=== PATIENT | female | born 1970 | race Caucasian/White ===

== ENCOUNTER 2021-02-15 08:05 | Inpatient (IN) | payer MEDICAID, SELFPAY ==
[~2021-02-15] VITALS: Ht 170.2 cm; Wt 143.3 kg
[2021-02-15 08:16] VITALS: BP_SYST 135
[2021-02-15] MEDS ORDERED: METOCLOPRAMIDE HCL 10 MG/2 ML VIAL IVP ONE (08:45)
[2021-02-15] MEDS ORDERED: NACL 0.9% 1,000 ML IV ONE (08:45)
[2021-02-15] MEDS ORDERED: DIPHENHYDRAMINE INJ 50 MG/ML VIAL IVP ONE (08:45)
[2021-02-15] MEDS ORDERED: MORPHINE 2 MG/ML INJ. SYRINGE IVP ONE (08:45)
[2021-02-15 09:15] LABS: BASOPHILS % (AUTO) 0.5 % (0.0-2.0); EOSINOPHILS % (AUTO) 0.6 % (0.0-4.0); HEMOGLOBIN 14.8 g/dL (12.0-16.0); LYMPHOCYTES # (AUTO) 1.2 K/uL (1.0-5.5); LYMPHOCYTES % (AUTO) 14.7 % (20.5-51.5); MEAN CORPUSCULAR HEMOGLOBIN 29 pg (27-31); MEAN CORPUSCULAR HGB CONC 34 % (32-36); MEAN CORPUSCULAR VOLUME 85 fL (79.0-98.0); MONOCYTES # (AUTO) 0.5 K/uL (0.0-1.0); MONOCYTES % (AUTO) 5.7 % (1.7-9.3); NEUTROPHILS # (AUTO) 6.5 K/uL (1.8-7.7); NEUTROPHILS % (AUTO) 78.5 % (40.0-70.0); PLATELET COUNT (AUTO) 321 K/uL (130-430); RED BLOOD CELL COUNT(AUTO) 5.17 MIL/uL (4.2-6.2); RED CELL DISTRIBUTION WIDTH 15.4 % (9.0-15.0); WHITE BLOOD COUNT (AUTO) 8.2 K/uL (4.8-10.8)
[2021-02-15 09:36] LABS: ANION GAP 16 (5-15); CHLORIDE 96 mmol/L (98-107); CREATININE 1.99 mg/dL (0.55-1.30); GLUCOSE 127 mg/dL (70-99); POTASSIUM 3.9 mmol/L (3.5-5.1); SODIUM SERUM 133 mmol/L (136-145); UREA NITROGEN, BLOOD 53 mg/dL (8-21)
[2021-02-15 09:41] LABS: GFR AFRICAN AMERICAN 34 mL/min (>90)
[2021-02-15 09:45] LABS: ALANINE AMINOTRANSFERASE 53 U/L (12-78); ALBUMIN 4.4 g/dL (3.4-4.8); ASPARTATE AMINOTRANSFERASE 37 U/L (10-37); LIPASE 428 U/L (73-393); TOTAL BILIRUBIN 0.7 mg/dL (0.0-1.0)
[2021-02-15] MEDS ORDERED: METF-518 PO (10:09)
[2021-02-15] MEDS ORDERED: TRI48 PO (10:09)
[2021-02-15] MEDS ORDERED: SIMV10TA2 PO (10:09)
[2021-02-15] MEDS ORDERED: LISI2.5T48 PO (10:09)
[2021-02-15 11:14] LABS: BILIRUBIN,URINE 1+ (NEGATIVE); CLARITY/URINE SL CLOUDY (CLEAR); COLOR,URINE YELLOW (YELLOW); GLUCOSE,URINE NEGATIVE (NEGATIVE); KETONES,URINE NEGATIVE (NEGATIVE); LEUKOCYTE ESTERASE ,URINE NEGATIVE (NEGATIVE); NITRITE, URINE NEGATIVE (NEGATIVE); PROTEIN URINE NEGATIVE (NEGATIVE); UROBILINOGEN,URINE 0.2 (0.2-1.0)
[2021-02-15 11:15] LABS: BLOOD, URINE TRACE (NEGATIVE)
[2021-02-15 11:20] LABS: BACTERIA,URINE None Seen /HPF (None Seen); CALCIUM OXALATE CRYSTALS,UR None Seen /HPF (None Seen); CALCIUM PHOSPHATE CRYSTALS,UR None Seen /HPF (None Seen); TRICHOMONAS,URINE None Seen /HPF (None Seen); YEAST,URINE None Seen /HPF (None Seen)
[2021-02-15] MEDS ORDERED: NACL 0.9% 1,000 ML IV SCH (12:15)
[2021-02-15] MEDS ORDERED: ONDANSETRON HCL 4 MG/2 ML VIAL IVP PRN (13:15)
[2021-02-15] MEDS ORDERED: INSULIN LISPRO SLIDING SCALE 100 UNITS/ML VIAL (humaLOG) SUBCUT PRN (13:15)
[2021-02-15] MEDS ORDERED: DEXTROSE 50% JECT 50 ML DISP.SYRIN IVP PRN (13:15)
[2021-02-15] MEDS ORDERED: LORazepam 2 MG/ML VIAL IVP PRN (13:15)
[2021-02-15] MEDS ORDERED: MAGNESIUM SULFATE 50 ML IV PRN (13:15)
[2021-02-15] MEDS ORDERED: MUPIROCIN 2% TOPICAL OINTMENT 22 GM NS PRN (13:15)
[2021-02-15] MEDS ORDERED: ACETAMINOPHEN 325 MG TABLET PO PRN (13:15)
[2021-02-15] MEDS ORDERED: ZOLPIDEM TARTRATE 5 MG TABLET PO PRN (13:15)
[2021-02-15] MEDS ORDERED: DOCUSATE SODIUM 100 MG CAPSULE PO PRN (13:15)
[2021-02-15] MEDS ORDERED: POTASSIUM CHLORIDE 20 MEQ TAB.PRT.SR PO PRN (13:15)
[2021-02-15 13:40] LABS: CHOLESTEROL 137 mg/dL (<200); HDL CHOLESTEROL 28 mg/dL (>55); LDL CHOLESTEROL 88 mg/dL (<100); TRIGLYCERIDES 172 mg/dL (30-150)
[2021-02-15 14:41] VITALS: BP_SYST 136
[2021-02-15] MEDS: D5NS 1,000 ML IV SCH ×2 (14:47→22:04)
[2021-02-15] MEDS ORDERED: METOCLOPRAMIDE HCL 10 MG/2 ML VIAL IVP PRN (15:00)
[2021-02-15] MEDS ORDERED: PANTOPRAZOLE SODIUM 40 MG/VIAL (PROTONIX) IVP ONE (15:00)
[2021-02-15] MEDS: MORPHINE 2 MG/ML INJ. SYRINGE IVP PRN ×2 (15:18→21:59)
[2021-02-15 20:00] VITALS: BP_SYST 110
[2021-02-15] MEDS: LOSARTAN POTASSIUM 25 MG TABLET PO SCH (22:02)
[2021-02-16 01:00] VITALS: BP_SYST 109
[2021-02-16] MEDS: D5NS 1,000 ML IV SCH ×4 (02:35→21:53)
[2021-02-16 09:29] LABS: CALCIUM 9.2 mg/dL (8.4-11.0); CREATININE 1.37 mg/dL (0.55-1.30); POTASSIUM 3.7 mmol/L (3.5-5.1)
[2021-02-16] MEDS ORDERED: DIATR MEGLU/DIATRIZ SOD 30 ML SOLUTION PO ONE (09:49)
[2021-02-16] MEDS: LEVOFLOXACIN 250 MG/D5W 50 ML IV SCH (11:27)
[2021-02-16] MEDS ORDERED: PANTOPRAZOLE SODIUM 40 MG/VIAL (PROTONIX) IVP ONE (11:30)
[2021-02-16 12:00] VITALS: BP_SYST 122
[2021-02-16 12:33] LABS: BASOPHILS % (AUTO) 0.4 % (0.0-2.0); EOSINOPHILS # (AUTO) 0.1 K/uL (0.0-0.4); HEMATOCRIT 40.9 % (36-48); HEMOGLOBIN 13.4 g/dL (12.0-16.0); LYMPHOCYTES # (AUTO) 1.4 K/uL (1.0-5.5); LYMPHOCYTES % (AUTO) 24.8 % (20.5-51.5); MEAN CORPUSCULAR HEMOGLOBIN 29 pg (27-31); MEAN CORPUSCULAR HGB CONC 33 % (32-36); MONOCYTES # (AUTO) 0.4 K/uL (0.0-1.0); MONOCYTES % (AUTO) 7.9 % (1.7-9.3); NEUTROPHILS # (AUTO) 3.8 K/uL (1.8-7.7); NEUTROPHILS % (AUTO) 65.9 % (40.0-70.0); PLATELET COUNT (AUTO) 314 K/uL (130-430); RED BLOOD CELL COUNT(AUTO) 4.69 MIL/uL (4.2-6.2); RED CELL DISTRIBUTION WIDTH 15.9 % (9.0-15.0); WHITE BLOOD COUNT (AUTO) 5.7 K/uL (4.8-10.8)
[2021-02-16] MEDS: LOSARTAN POTASSIUM 25 MG TABLET PO SCH ×2 (12:39→21:00)
[2021-02-16] MEDS: metroNIDAZOLE 250 MG TABLET PO SCH ×2 (12:39→18:00)
[2021-02-16 12:52] LABS: MEAN CORPUSCULAR VOLUME 87 fL (79.0-98.0)
[2021-02-16 13:47] LABS: HCG,QUAL RESULT NEGATIVE (NEGATIVE)
[2021-02-16 14:05] LABS: BILIRUBIN,URINE NEGATIVE (NEGATIVE); BLOOD, URINE NEGATIVE (NEGATIVE); CLARITY/URINE CLEAR (CLEAR); COLOR,URINE YELLOW (YELLOW); GLUCOSE,URINE NEGATIVE (NEGATIVE); KETONES,URINE NEGATIVE (NEGATIVE); LEUKOCYTE ESTERASE ,URINE NEGATIVE (NEGATIVE); NITRITE, URINE NEGATIVE (NEGATIVE); PH,URINE 5.5 (5.0-8.0); PROTEIN URINE NEGATIVE (NEGATIVE); UROBILINOGEN,URINE 0.2 (0.2-1.0)
[2021-02-16] MEDS: MORPHINE 2 MG/ML INJ. SYRINGE IVP PRN (14:22)
[2021-02-16 14:51] VITALS: BP_SYST 131
[2021-02-16 16:00] VITALS: BP_SYST 155
[2021-02-16 20:00] VITALS: BP_SYST 117
[2021-02-17] MEDS: metroNIDAZOLE 250 MG TABLET PO SCH ×2 (01:20→11:11)
[2021-02-17 05:00] VITALS: BP_SYST 114
[2021-02-17] MEDS: D5NS 1,000 ML IV SCH (06:02)
[2021-02-17 07:13] LABS: BASOPHILS % (AUTO) 0.4 % (0.0-2.0); EOSINOPHILS # (AUTO) 0.1 K/uL (0.0-0.4); EOSINOPHILS % (AUTO) 1.3 % (0.0-4.0); HEMATOCRIT 37.2 % (36-48); HEMOGLOBIN 12.1 g/dL (12.0-16.0); LYMPHOCYTES # (AUTO) 1.6 K/uL (1.0-5.5); LYMPHOCYTES % (AUTO) 30.4 % (20.5-51.5); MEAN CORPUSCULAR HEMOGLOBIN 28 pg (27-31); MEAN CORPUSCULAR HGB CONC 33 % (32-36); MEAN CORPUSCULAR VOLUME 86 fL (79.0-98.0); MONOCYTES # (AUTO) 0.4 K/uL (0.0-1.0); MONOCYTES % (AUTO) 7.9 % (1.7-9.3); NEUTROPHILS # (AUTO) 3.3 K/uL (1.8-7.7); PLATELET COUNT (AUTO) 261 K/uL (130-430); RED BLOOD CELL COUNT(AUTO) 4.33 MIL/uL (4.2-6.2); RED CELL DISTRIBUTION WIDTH 15.8 % (9.0-15.0); WHITE BLOOD COUNT (AUTO) 5.4 K/uL (4.8-10.8)
[2021-02-17 07:54] LABS: INR 1.1 (0.8-1.2); PROTHROMBIN TIME 11.2 SECS (9.5-12.5)
[2021-02-17 08:00] VITALS: BP_SYST 131
[2021-02-17 08:22] LABS: ALBUMIN 3.2 g/dL (3.4-4.8); CREATININE 0.98 mg/dL (0.55-1.30); POTASSIUM 3.8 mmol/L (3.5-5.1); TOTAL BILIRUBIN 0.6 mg/dL (0.0-1.0)
[2021-02-17] MEDS ORDERED: PANTOPRAZOLE SODIUM 40 MG/VIAL (PROTONIX) IVP SCH (09:00)
[2021-02-17] MEDS: LOSARTAN POTASSIUM 25 MG TABLET PO SCH (09:04)
[2021-02-17] MEDS: LEVOFLOXACIN 250 MG/D5W 50 ML IV SCH (11:11)
[2021-02-17 12:00] VITALS: BP_SYST 116
[2021-02-17 14:32] VITALS: BP_SYST 116
== END 2021-02-17 17:30 | disposition home or self-care (01) | DRG 249 ==
LOC: SED 08:05 → SMU 12:15
PROVIDERS: ADMIT General Practice; ATTEND General Practice
DX: A08.4 Viral intestinal infection, unspecified (principal); N17.0 Acute kidney failure with tubular necrosis; R65.11 Systemic inflammatory response syndrome (SIRS) of non-infectious origin with acute organ dysfunction; E66.9 Obesity, unspecified; E78.5 Hyperlipidemia, unspecified; I10 Essential (primary) hypertension; Z20.822 Contact with and (suspected) exposure to COVID-19; E86.0 Dehydration; E87.2 Acidosis; Z68.42 Body mass index [BMI] 45.0-49.9, adult; Z87.440 Personal history of urinary (tract) infections; Z79.899 Other long term (current) drug therapy; Z79.84 Long term (current) use of oral hypoglycemic drugs; Z88.8 Allergy status to other drugs, medicaments and biological substances
CPT/HCPCS: 36415; 76376; 76770; 80048; 80053; 80061; 81000; 81003; 82962; 83036; 83690; 83735; 84484; 84703; 85025; 85610-TC; 85730-TC; 87045-TC; 87046; 87177; 87230-TC; 89055; 93005; 96361; 96374; 96375; 99285; C9113; J1200; J1956; J2060; J2270; J2765; Q9964

== ENCOUNTER 2021-02-20 07:07 | Emergency (ER) | payer MEDICAID, SELFPAY ==
[~2021-02-20] VITALS: Ht 170.2 cm; Wt 140.6 kg
[2021-02-20 07:07] VITALS: BP_SYST 140
[~2021-02-20 07:07] MED LIST: LISI2.5T48 PO; METF-518 PO; SIMV10TA2 PO; TRI48 PO
--- NOTE | 2021-02-20 07:07 | NUR ---
BROUGHT BACK TO TRIAGE TENT, TRIAGED AND AWAITING ER BED
--- NOTE | 2021-02-20 07:20 | NUR ---
BROUGHT IN TO BED #4 AND REPORT GIVEN MARTHA
[2021-02-20] MEDS ORDERED: NS 500 ML IV ONE (07:45)
--- NOTE | 2021-02-20 07:56 | NUR ---
BIB SELF FOR LOOSE STOOL. NO OTHER COMPLAINTS
[2021-02-20 08:11] LABS: BASOPHILS % (AUTO) 0.7 % (0.0-2.0); EOSINOPHILS # (AUTO) 0.1 K/uL (0.0-0.4); EOSINOPHILS % (AUTO) 1.7 % (0.0-4.0); HEMATOCRIT 40.5 % (36-48); HEMOGLOBIN 13.3 g/dL (12.0-16.0); LYMPHOCYTES # (AUTO) 1.7 K/uL (1.0-5.5); LYMPHOCYTES % (AUTO) 28.9 % (20.5-51.5); MEAN CORPUSCULAR HEMOGLOBIN 28 pg (27-31); MEAN CORPUSCULAR HGB CONC 33 % (32-36); MEAN CORPUSCULAR VOLUME 86 fL (79.0-98.0); MONOCYTES # (AUTO) 0.4 K/uL (0.0-1.0); MONOCYTES % (AUTO) 6.2 % (1.7-9.3); NEUTROPHILS # (AUTO) 3.8 K/uL (1.8-7.7); NEUTROPHILS % (AUTO) 62.5 % (40.0-70.0); PLATELET COUNT (AUTO) 254 K/uL (130-430); RED BLOOD CELL COUNT(AUTO) 4.72 MIL/uL (4.2-6.2); RED CELL DISTRIBUTION WIDTH 15.8 % (9.0-15.0)
[2021-02-20 08:17] LABS: CALCIUM 9.2 mg/dL (8.4-11.0); CREATININE 0.97 mg/dL (0.55-1.30); POTASSIUM 3.7 mmol/L (3.5-5.1)
--- NOTE | 2021-02-20 08:20 | NUR ---
PT C/O HEADACHE MD AWARE
[2021-02-20 08:25] LABS: BILIRUBIN,URINE 2+ (NEGATIVE); BLOOD, URINE 1+ (NEGATIVE); CLARITY/URINE SL CLOUDY (CLEAR); COLOR,URINE YELLOW (YELLOW); GLUCOSE,URINE NEGATIVE (NEGATIVE); KETONES,URINE TRACE (NEGATIVE); LEUKOCYTE ESTERASE ,URINE NEGATIVE (NEGATIVE); NITRITE, URINE POSITIVE (NEGATIVE); PROTEIN URINE 2+ (NEGATIVE); UROBILINOGEN,URINE 0.2 (0.2-1.0)
[2021-02-20 08:31] LABS: ALBUMIN 3.6 g/dL (3.4-4.8); PHOSPHORUS 4.2 mg/dL (2.7-4.5); THYROID STIMULATING HORMONE 1.71 uIu/mL (0.36-3.74); TOTAL BILIRUBIN 0.5 mg/dL (0.0-1.0)
--- NOTE | 2021-02-20 08:49 | NUR ---
MD HERNANDEZ AGAIN PT C/O HEADACHE NO ORDERS RCEIVED
[2021-02-20] MEDS ORDERED: LOM2.5 PO (09:22)
[2021-02-20] MEDS ORDERED: PROCHLORPERAZINE EDISYLATE 10 MG/2 ML VIAL IVP ONE (09:30)
[2021-02-20 09:45] VITALS: BP_SYST 140
--- NOTE | 2021-02-20 09:47 | NUR ---
Patient given written and verbal discharge instructions and verbalizes understanding. EDEL NOLAN MD discussed with patient the results and treatment provided. Patient in stable condition. ID arm band removed. IV catheter removed intact and dressing applied, no active bleeding. Rx of LOMOTIL given. Patient educated on pain management and to follow up with PMD. Pain Scale 2 HEADACHE. Opportunity for questions provided and answered. Medication side effect fact sheet provided.
[2021-02-20] MEDS ORDERED: NITR-85 PO (09:51)
[2021-02-20 10:16] LABS: BACTERIA,URINE MODERATE /HPF (None Seen)
== END 2021-02-20 09:47 | disposition home or self-care (01) ==
LOC: SED 07:07
DX: N39.0 Urinary tract infection, site not specified (principal); R19.7 Diarrhea, unspecified; Z88.5 Allergy status to narcotic agent; Z88.8 Allergy status to other drugs, medicaments and biological substances; Z88.6 Allergy status to analgesic agent; Z79.899 Other long term (current) drug therapy; Z79.84 Long term (current) use of oral hypoglycemic drugs
CPT/HCPCS: 36415; 80053; 81000; 83735; 84100; 84443; 85025; 96361; 96374; 99283; J0780; J7030

== ENCOUNTER 2021-02-22 05:40 | Inpatient (IN) | payer MEDICAID, SELFPAY ==
[~2021-02-22] VITALS: Ht 170.2 cm; Wt 140.6 kg
[~2021-02-22 05:40] MED LIST changes: +LOM2.5 PO; +NITR-85 PO
[2021-02-22 06:08] VITALS: BP_SYST 128
--- NOTE | 2021-02-22 06:08 | NUR ---
Patient ambulatory to bed 8 for evaluation
[2021-02-22] MEDS ORDERED: ONDANSETRON HCL 4 MG/2 ML VIAL IM ONE (06:30)
--- NOTE | 2021-02-22 06:30 | NUR ---
ER Dr. Epps at bedside examining patient.
--- NOTE | 2021-02-22 06:55 | NUR ---
Received patient to ER w/ c/o n/v and diarrhea. Patient was seen x2 days ago for similar c/o but sx have not resolved. Introduced self to patient, positioned for comfort. Patient refused zofran 2nd "it upsets my stomach". MD will be notified. Patient resting quietly. No acute distress noted. Vital signs within normal range.
[2021-02-22] MEDS ORDERED: METOCLOPRAMIDE HCL 10 MG/2 ML VIAL ONE (07:02)
--- NOTE | 2021-02-22 07:10 | NUR ---
# gauge angiocath placed to right hand. Use of asceptic technique. Opsite placed over site. Blood return noted. Flushed with 10 cc of normal saline. No evidence of infiltration noted. Patient tolerated well.
--- NOTE | 2021-02-22 07:10 | NUR ---
Medicated w/ reglan 10mg per MD orders. will continue to monitor for any adverse reaction. bed to low position sr up, continue to monitor.
--- NOTE | 2021-02-22 07:13 | NUR ---
RECEIVED PT, LAYING ON GURNEY, IN NAD. RESP EVEN AND UNLABORED, IN NAD. DENIES ANY PAIN AT THIS TIME. PT OBESE, ABD SOFT, NT TO PALPATION. MEDICATED WITH REGLAN WITH PRIOR SHIFT. REPORTS WAS ADMITTED HERE LAST WEEK FOR SAME ISSUE, DIAGNOSED WITH VOMITTING, NO OTHER DIAGNOSIS PER PT. WILL CONT TO MONITOR.
[2021-02-22] MEDS ORDERED: METOCLOPRAMIDE HCL 10 MG/2 ML VIAL IVP ONE (07:30)
[2021-02-22 07:55] LABS: BASOPHILS % (AUTO) 0.5 % (0.0-2.0); EOSINOPHILS % (AUTO) 0.5 % (0.0-4.0); HEMATOCRIT 45.3 % (36-48); LYMPHOCYTES # (AUTO) 1.4 K/uL (1.0-5.5); LYMPHOCYTES % (AUTO) 15.9 % (20.5-51.5); MEAN CORPUSCULAR HEMOGLOBIN 28 pg (27-31); MEAN CORPUSCULAR HGB CONC 33 % (32-36); MEAN CORPUSCULAR VOLUME 85 fL (79.0-98.0); MONOCYTES # (AUTO) 0.5 K/uL (0.0-1.0); MONOCYTES % (AUTO) 5.9 % (1.7-9.3); NEUTROPHILS % (AUTO) 77.2 % (40.0-70.0); PLATELET COUNT (AUTO) 377 K/uL (130-430); RED BLOOD CELL COUNT(AUTO) 5.32 MIL/uL (4.2-6.2); RED CELL DISTRIBUTION WIDTH 15.7 % (9.0-15.0)
[2021-02-22 08:05] LABS: ANION GAP 17 (5-15); CALCIUM 9.2 mg/dL (8.4-11.0); CHLORIDE 97 mmol/L (98-107); CREATININE 2.02 mg/dL (0.55-1.30); GLUCOSE 127 mg/dL (70-99); POTASSIUM 3.6 mmol/L (3.5-5.1); SODIUM SERUM 133 mmol/L (136-145); UREA NITROGEN, BLOOD 27 mg/dL (8-21)
[2021-02-22 08:10] LABS: ALANINE AMINOTRANSFERASE 52 U/L (12-78); ALBUMIN 4.2 g/dL (3.4-4.8); AMYLASE 129 U/L (0-100); ASPARTATE AMINOTRANSFERASE 28 U/L (10-37); C-REACTIVE PROTEIN QUANT 4.2 mg/dL (0-0.5); LIPASE 356 U/L (73-393); TOTAL BILIRUBIN 0.3 mg/dL (0.0-1.0)
[2021-02-22 08:13] LABS: GFR AFRICAN AMERICAN 34 mL/min (>90)
[2021-02-22 08:27] LABS: INR 1.1 (0.8-1.2); PROTHROMBIN TIME 11.3 SECS (9.5-12.5)
--- NOTE | 2021-02-22 08:37 | NUR ---
URINE COLLECTED AND SENT TO LAB
[2021-02-22] MEDS ORDERED: NACL 0.9% 1,000 ML IV ONE (09:15)
[2021-02-22] MEDS ORDERED: DIATR MEGLU/DIATRIZ SOD 30 ML SOLUTION PO ONE (09:28)
[2021-02-22 09:35] LABS: ACETONE, SERUM NEGATIVE (NEGATIVE)
[2021-02-22 09:42] LABS: BARBITURATE, URINE NEGATIVE (NEG <=200); BENZODIAZEPINE, URINE POSITIVE (NEG <=150); CANNABINOID, URINE NEGATIVE (NEG <=50); COCAINE, URINE NEGATIVE (NEG <=150); METHAMPHETAMINES SCREEN,URINE NEGATIVE (NEG <=500); OPIATE, URINE NEGATIVE (NEG <=100); PHENCYCLIDINE SCREEN,URINE NEGATIVE (NEG <=25); UR TRICYCLIC ANTIDEPRESSANTS NEGATIVE (NEG <=300); URINE AMPHETAMINE NEGATIVE (NEG <=500); URINE METHADONE NEGATIVE (NEG <=200); URINE OXYCODONE SCREEN NEGATIVE (NEG <=100); URINE PROPOXYPHENE SCREEN NEGATIVE (NEG <=300)
--- NOTE | 2021-02-22 10:07 | NUR ---
NO ACUTE CHANGE IN CONDITION. PT WITH EYES CLOSED, IN NAD. RESP EVEN AND UNLABORED, ON RA @98%
--- NOTE | 2021-02-22 10:27 | NUR ---
ADMITTING ORDERS RECEIVED, PT VERBALIZED UNDERSTANDING.
--- NOTE | 2021-02-22 11:24 | NUR ---
PT CONTINUES TO REPORT INTERMITTENT NAUSEA AND DIARRHEA. VSS, SKIN W/D/I.
--- NOTE | 2021-02-22 11:28 | NUR ---
PT TO CT SCAN VIA W/C.
[2021-02-22 11:34] LABS: BILIRUBIN,URINE 2+ (NEGATIVE); CLARITY/URINE SL CLOUDY (CLEAR); COLOR,URINE YELLOW (YELLOW); GLUCOSE,URINE NEGATIVE (NEGATIVE); KETONES,URINE TRACE (NEGATIVE); LEUKOCYTE ESTERASE ,URINE TRACE (NEGATIVE); NITRITE, URINE NEGATIVE (NEGATIVE); PROTEIN URINE 2+ (NEGATIVE); UROBILINOGEN,URINE 0.2 (0.2-1.0)
[2021-02-22 11:39] LABS: BLOOD, URINE TRACE (NEGATIVE)
[2021-02-22] MEDS: cefTRIAXone 1 GM in D5W 50 ML IV SCH (12:00)
[2021-02-22] MEDS ORDERED: PANTOPRAZOLE SODIUM 40 MG/VIAL (PROTONIX) IVP ONE (12:00)
[2021-02-22] MEDS ORDERED: ONDANSETRON HCL 4 MG/2 ML VIAL IVP PRN (12:00)
[2021-02-22] MEDS ORDERED: MAG-AL HYDROX/SIMETH 30 ML UDC PO PRN (12:00)
[2021-02-22] MEDS: NACL 0.9% 1,000 ML IV SCH ×3 (12:00→21:45)
--- NOTE | 2021-02-22 12:03 | NUR ---
PT CONVERSING WITH FAMILY, IN NAD. RESPEVEN AND UNLABOERED, WAITING FOR M/S BED. VSS.
[2021-02-22] MEDS ORDERED: INSULIN REGULAR, HUMAN 100 UNITS/ML, 10 ML VIAL (humuLIN R) SUBCUT PRN (12:15)
[2021-02-22] MEDS ORDERED: DEXTROSE 50% JECT 50 ML DISP.SYRIN IVP PRN (12:15)
[2021-02-22 12:52] LABS: BACTERIA,URINE MODERATE /HPF (None Seen)
--- NOTE | 2021-02-22 13:06 | NUR ---
PT WITH EYES CLOSED, EASILY [place]. CONTINUES TO REPORT CONT NAUSEA/DIARRHEA. NO VIMTTING SEEN, WILL CONT TOMONITOR.
[2021-02-22] MEDS ORDERED: cefTRIAXone 1 GM VIAL ONE (13:56)
--- NOTE | 2021-02-22 14:03 | NUR ---
PT REPORTS GOING TO [facility] AND HAVING SOME DIARRHEA, IV FLUIDS INFUSING WITH ROCEPHIN ORDERED.
--- NOTE | 2021-02-22 14:38 | NUR ---
Patient will be admitted to care of DR JAIMES. Admitted to unit. Will go to room . Belongings list completed. Complete and up to date summary report printed. SBAR report to be given at bedside with opportunity for questions.
[2021-02-22 15:44] VITALS: BP_SYST 113
[2021-02-22 16:00] VITALS: BP_SYST 113
[2021-02-22] MEDS: MAG-AL HYDROX/SIMETH 30 ML UDC PO SCH ×2 (16:08→19:42)
--- NOTE | 2021-02-22 16:28 | NUR ---
ATTENDING MD DR JAIMES WAS CALLED RE: MEDS FOR DIARRHEA AND HEADACHE. PT PREFERS MORPHINE FOR HUGGINS. SPOKE TO ANGGE.
--- NOTE | 2021-02-22 16:58 | NUR ---
alert, oriented, multiple complaints on arrival: 1/ vomitting without stop ( vomitus bag given, stayed there with her almost 1hr for interview, no vomitting took place) 2/ diarrhea wihout stop ( a specimen cup given for stool collection, culture and sensitivity). No meds ordered until result back 3/ morphine " must be morphine, NO TYLENOL, did not work for my headache, ) explained morphine will make her nauseated more, still insists MSO4 ivp. attending made aware of patient's allergy, NORCO, ultram 50 mg qid prn if needed 4/ heart burn secondary to intractable vomitting, Maalox 30cc given, took only 1/2 of it. Clear liquid given, did not want to eat, asked for ice chips , instead. IVF initiated, NS at 150cc /hr
--- NOTE | 2021-02-22 17:56 | NUR ---
no vomitting noted, stool collected for C &S bs 166, declined insulin coverage, " i havent eaten anything, plus blood sugar 166, not orin enough, declined coverage made aware she can have Ultram if in pain, rejected.
[2021-02-22 19:25] VITALS: BP_SYST 101
--- NOTE | 2021-02-22 19:30 | NUR ---
initial notes: pt is awake, alert, oriented x 4. no complain of pain,no sob,no vomiting. stable vital sign, ivf infusing well, ambulatory with steady gait. discuss plan of care. pt agree, needs attended call light in reach. will followup.
[2021-02-22] MEDS: PANTOPRAZOLE SODIUM 40 MG/VIAL (PROTONIX) IVP SCH (21:32)
[2021-02-23 00:04] VITALS: BP_SYST 93
--- NOTE | 2021-02-23 01:17 | NUR ---
sleeping comfortable. no vomiting, stable. ivf infusing well.
--- NOTE | 2021-02-23 03:17 | NUR ---
BRP, pt ambulate with steady gait, back to bed, needs attended.
[2021-02-23] MEDS: NACL 0.9% 1,000 ML IV SCH ×3 (06:17→22:30)
--- NOTE | 2021-02-23 06:48 | NUR ---
closing: pt is sleeping, comfortable. no pain, not distress, no vomiting and no diarrhea the whole shift, stable. ivf infusing well. -intact and patent. ambulatory to bathroom with steady gait. needs attended the whole shift. call light with the pt,safety precaution in place. will continue to monitor pt, until sbar reporting given to am rn.
[2021-02-23 07:01] LABS: BASOPHILS % (AUTO) 0.5 % (0.0-2.0); EOSINOPHILS % (AUTO) 0.6 % (0.0-4.0); HEMATOCRIT 40.5 % (36-48); HEMOGLOBIN 13.3 g/dL (12.0-16.0); LYMPHOCYTES # (AUTO) 1.8 K/uL (1.0-5.5); LYMPHOCYTES % (AUTO) 24.3 % (20.5-51.5); MEAN CORPUSCULAR HEMOGLOBIN 28 pg (27-31); MEAN CORPUSCULAR HGB CONC 33 % (32-36); MEAN CORPUSCULAR VOLUME 86 fL (79.0-98.0); MONOCYTES # (AUTO) 0.7 K/uL (0.0-1.0); MONOCYTES % (AUTO) 8.9 % (1.7-9.3); NEUTROPHILS # (AUTO) 4.9 K/uL (1.8-7.7); NEUTROPHILS % (AUTO) 65.7 % (40.0-70.0); PLATELET COUNT (AUTO) 296 K/uL (130-430); RED BLOOD CELL COUNT(AUTO) 4.72 MIL/uL (4.2-6.2); RED CELL DISTRIBUTION WIDTH 15.5 % (9.0-15.0); WHITE BLOOD COUNT (AUTO) 7.4 K/uL (4.8-10.8)
--- NOTE | 2021-02-23 08:00 | NUR ---
AM NOTES NO VOMITING. NO DIARRHEA NOTED TODAY. AMBULATE TO THE BATHROOM
[2021-02-23 08:40] LABS: ALBUMIN 3.5 g/dL (3.4-4.8); CALCIUM 8.9 mg/dL (8.4-11.0); CREATININE 2.14 mg/dL (0.55-1.30); POTASSIUM 3.2 mmol/L (3.5-5.1); TOTAL BILIRUBIN 0.6 mg/dL (0.0-1.0)
[2021-02-23 08:41] VITALS: BP_SYST 115
[2021-02-23] MEDS: PANTOPRAZOLE SODIUM 40 MG/VIAL (PROTONIX) IVP SCH ×2 (09:05→22:25)
[2021-02-23] MEDS: MAG-AL HYDROX/SIMETH 30 ML UDC PO SCH ×4 (09:06→22:25)
[2021-02-23] MEDS: FENOFIBRATE NANOCRYSTALLIZED 48 MG TABLET (TRICOR) PO SCH (09:06)
[2021-02-23] MEDS: SIMVASTATIN 10 MG TABLET PO SCH (09:06)
[2021-02-23 09:15] VITALS: BP_SYST 105
[2021-02-23 12:08] VITALS: BP_SYST 114
[2021-02-23] MEDS: cefTRIAXone 1 GM in D5W 50 ML IV SCH (12:13)
--- NOTE | 2021-02-23 13:50 | NUR ---
HIGH ALERT NOTE: Called Dr. JAIMES back at [phone] identified within the medical roster to verify physician authenticity.
[2021-02-23] MEDS ORDERED: POTASSIUM CHLORIDE 20 MEQ/PKT PACKET PO ONE (14:00)
--- NOTE | 2021-02-23 14:57 | NUR ---
CONSULTATION PAGED/CALLED Reason for Consultation: [] abnormal gastric wall Person Who was Notified: [] YOLIS Consulting Physician: [] DR DUTTON Order Editor Specialty: [] GI Ordering Physician: [] DR JAIMES
--- NOTE | 2021-02-23 15:00 | NUR ---
SEEN BY MD SEEN BY DR JAIMES, TO BE SEEN BY DR GONZALEZ (NEPHRO)AND DR SINGH (GI)
[2021-02-23 16:14] VITALS: BP_SYST 107
--- NOTE | 2021-02-23 16:24 | NUR ---
CONSULTATION PAGED/CALLED Reason for Consultation: [] RENAL FAILURE Person Who was Notified: [] DR GONZALEZ Consulting Physician: [] DR GONZALEZ Php Software Engineer Specialty: [] NEPHRO Ordering Physician: [] DR JAIMES
[2021-02-23] MEDS ORDERED: METOCLOPRAMIDE HCL 10 MG/2 ML VIAL IVP PRN (17:00)
--- NOTE | 2021-02-23 19:47 | NUR ---
FULL LIQUID NOT TOLERATED PATIENT UNABLE TO TOLERATED FULL LIQUID, HAD DIARRHEA, WANTS TO BE BACK ON CLEAR LIQUID.
[2021-02-23 20:00] VITALS: BP_SYST 112
[2021-02-24] VITALS: BP_SYST 108
[2021-02-24] MEDS: NACL 0.9% 1,000 ML IV SCH ×3 (05:04→18:04)
[2021-02-24 06:46] LABS: BASOPHILS % (AUTO) 0.7 % (0.0-2.0); EOSINOPHILS # (AUTO) 0.1 K/uL (0.0-0.4); EOSINOPHILS % (AUTO) 1.1 % (0.0-4.0); HEMATOCRIT 34.5 % (36-48); HEMOGLOBIN 11.3 g/dL (12.0-16.0); LYMPHOCYTES # (AUTO) 1.7 K/uL (1.0-5.5); LYMPHOCYTES % (AUTO) 33.1 % (20.5-51.5); MEAN CORPUSCULAR HEMOGLOBIN 28 pg (27-31); MEAN CORPUSCULAR HGB CONC 33 % (32-36); MEAN CORPUSCULAR VOLUME 86 fL (79.0-98.0); MONOCYTES # (AUTO) 0.4 K/uL (0.0-1.0); MONOCYTES % (AUTO) 8.5 % (1.7-9.3); NEUTROPHILS # (AUTO) 2.9 K/uL (1.8-7.7); NEUTROPHILS % (AUTO) 56.6 % (40.0-70.0); PLATELET COUNT (AUTO) 228 K/uL (130-430); RED BLOOD CELL COUNT(AUTO) 4.01 MIL/uL (4.2-6.2); RED CELL DISTRIBUTION WIDTH 15.3 % (9.0-15.0); WHITE BLOOD COUNT (AUTO) 5.1 K/uL (4.8-10.8)
[2021-02-24 07:31] LABS: CALCIUM 8.5 mg/dL (8.4-11.0); CREATININE 1.24 mg/dL (0.55-1.30); POTASSIUM 3.7 mmol/L (3.5-5.1)
[2021-02-24 08:41] VITALS: BP_SYST 115
--- NOTE | 2021-02-24 08:41 | NUR ---
INITIAL ROUNDS Received pt AAOx4, no s/s resp distress, no c/o pain or discomfort. Pt stated post clear liquid breakfast she had a bowel movement-more solid, still a little loose. She wants to try a full liquid lunch. Plan of care for the day reviewed with pt-pt verbalized her understanding. IVF infusing well to right hand at ordered rate with no s/s infiltration to site. Pain management, skin and safety discussed-teach back done. Call light within reach.
[2021-02-24] MEDS: MAG-AL HYDROX/SIMETH 30 ML UDC PO SCH ×4 (09:00→21:17)
[2021-02-24] MEDS: SIMVASTATIN 10 MG TABLET PO SCH (09:40)
[2021-02-24] MEDS: FENOFIBRATE NANOCRYSTALLIZED 48 MG TABLET (TRICOR) PO SCH (09:40)
[2021-02-24] MEDS: PANTOPRAZOLE SODIUM 40 MG/VIAL (PROTONIX) IVP SCH ×2 (09:41→21:17)
[2021-02-24 11:24] VITALS: BP_SYST 123
[2021-02-24] MEDS: cefTRIAXone 1 GM in D5W 50 ML IV SCH (13:27)
[2021-02-24 15:22] VITALS: BP_SYST 104
[2021-02-24] MEDS: traMADol HCL HCL 50 MG TABLET (ULTRAM) PO PRN ×2 (15:31→21:18)
--- NOTE | 2021-02-24 16:15 | NUR ---
Dietitian Recommendations * [facility] * Advance diet if/when medically appropriate ([facility] diet) * RD provided diabetic/GERD MNT JANEE, EMILY Please refer to Nutrition Assessment for details. Addendum: 02/24/21 at [address] Amended: Links added.
--- NOTE | 2021-02-24 18:19 | NUR ---
CLOSING NOTE Pt sitting up in bed with no s/s resp distress, no c/o pain or discomfort. Pt had soft CCHO diet for dinner, tolerated well, no c/o diarrhea or nausea. IVF infusing well to right hand at ordered rate with no s/s infiltration to site. Needs met, call light within reach.
--- NOTE | 2021-02-24 19:15 | NUR ---
CHANGE OF SHIFT; endorsed by day shift. for intractable vomiting. no vomiting all day. no distress. call light within reach.
[2021-02-24 20:00] VITALS: BP_SYST 107
--- NOTE | 2021-02-24 20:00 | NUR ---
NOTES: pt. awake, alert when checked, c/o headache, was given pain med earlier but said did not help. IVF continuous @ 15o cc/hr.
--- NOTE | 2021-02-24 22:20 | NUR ---
NOTES: pt/ c/o headache, medicated with Ultram po and due meds given. BS checked 102, no sliding scale. IV continuous @ 150 cc/hr.
[2021-02-25] MEDS: NACL 0.9% 1,000 ML IV SCH ×3 (01:00→13:11)
--- NOTE | 2021-02-25 01:22 | NUR ---
NOTES: pt. sleeping and awakened with IV alarm. IV bag changed.
--- NOTE | 2021-02-25 04:00 | NUR ---
NOTES: pt. been interrupted sleeping with IV pump alarming every now and then. pt. able to go back to sleep after.
[2021-02-25 06:10] LABS: BASOPHILS % (AUTO) 0.5 % (0.0-2.0); EOSINOPHILS # (AUTO) 0.1 K/uL (0.0-0.4); EOSINOPHILS % (AUTO) 1.8 % (0.0-4.0); HEMATOCRIT 33.4 % (36-48); HEMOGLOBIN 10.8 g/dL (12.0-16.0); LYMPHOCYTES # (AUTO) 2.1 K/uL (1.0-5.5); LYMPHOCYTES % (AUTO) 40.9 % (20.5-51.5); MEAN CORPUSCULAR HEMOGLOBIN 28 pg (27-31); MEAN CORPUSCULAR HGB CONC 32 % (32-36); MEAN CORPUSCULAR VOLUME 87 fL (79.0-98.0); MONOCYTES # (AUTO) 0.5 K/uL (0.0-1.0); MONOCYTES % (AUTO) 8.8 % (1.7-9.3); NEUTROPHILS # (AUTO) 2.5 K/uL (1.8-7.7); PLATELET COUNT (AUTO) 216 K/uL (130-430); RED BLOOD CELL COUNT(AUTO) 3.86 MIL/uL (4.2-6.2); RED CELL DISTRIBUTION WIDTH 15.4 % (9.0-15.0); WHITE BLOOD COUNT (AUTO) 5.2 K/uL (4.8-10.8)
[2021-02-25 06:12] LABS: ALBUMIN 2.7 g/dL (3.4-4.8); CALCIUM 8.3 mg/dL (8.4-11.0); CREATININE 1.05 mg/dL (0.55-1.30); TOTAL BILIRUBIN 0.3 mg/dL (0.0-1.0)
--- NOTE | 2021-02-25 06:41 | NUR ---
CLOSING NOTES; pt. been dozing on and off, verbalized she did not get enough sleep. IVF continuous @ 150 cc/hr. no vomiting. denies any pain at this time. BS checked 84, offered juice but she will wait for breakfast. call light wiClearside Biomedicalin reach. will endorse to incoming shift.
--- NOTE | 2021-02-25 08:05 | NUR ---
OPENING NOTES: Patient eating breakfast. No s/s of acute distress noted. IV infusing well. Fall and safety measures reinforced. Call light within reach.
[2021-02-25 08:30] VITALS: BP_SYST 123
[2021-02-25] MEDS: PANTOPRAZOLE SODIUM 40 MG/VIAL (PROTONIX) IVP SCH (08:59)
[2021-02-25] MEDS: MAG-AL HYDROX/SIMETH 30 ML UDC PO SCH ×2 (09:00→13:11)
[2021-02-25] MEDS: FENOFIBRATE NANOCRYSTALLIZED 48 MG TABLET (TRICOR) PO SCH (09:01)
[2021-02-25] MEDS: SIMVASTATIN 10 MG TABLET PO SCH (09:02)
[2021-02-25 11:31] VITALS: BP_SYST 119
[2021-02-25] MEDS: cefTRIAXone 1 GM in D5W 50 ML IV SCH (11:39)
--- NOTE | 2021-02-25 11:42 | NUR ---
RN NOTES/ACCUCHECK: ACCUCHECK DONE (86). PATIENT GIVEN JUICE. NO S/S NOTED. DENIES ANY DISCOMFORT AT THIS TIME.
[2021-02-25] MEDS ORDERED: LACT1TAB14 PO (15:08)
[2021-02-25] MEDS ORDERED: CIPR500T5 PO ×2 (15:08)
[2021-02-25 15:27] VITALS: BP_SYST 122
--- NOTE | 2021-02-25 15:33 | NUR ---
Dr. Zambrano rounds Dr. Zambrano discussed patient's results with her at her bedside. He reviewed her labs and CTAP and Renal US results with her. He recommends that the patient follow a diet and exercise regimen with calorie and carbohydrate counting. The patient verbalized understanding. The patient was instructed to follow up with her primary care provider for follow up Renal US in 6 months and that she can stop taking Metformin for now as long as her blood glucose levels remain WNL and that she follows and diet and exercise regimen- she needs to follow up with her primary care provider for follow up labs, the patient verbalized understanding. CTAP, Renal US and Lab results provided to the patient by Dr. Zambrano. Informed primary nurse, Lidia HAYS.
[2021-02-25 16:34] VITALS: BP_SYST 122
--- NOTE | 2021-02-25 17:40 | NUR ---
D/C Patient Patient given medication reconciliation form and D/C instructions. Exit Care provided. Patient verbalized understanding. MD discussed with patient the results and treatment provided. Ambulatory with steady gait for discharge to home. Patient in stable condition, ID band removed. IV catheter removed, intact and dressing applied, no active bleeding. E script given. All belongings sent with patient.
== END 2021-02-25 17:40 | disposition home or self-care (01) | DRG 249 ==
LOC: SED 05:40 → SMU 10:29
PROVIDERS: ADMIT Internal Medicine; ATTEND Internal Medicine
DX: K52.9 Noninfective gastroenteritis and colitis, unspecified (principal); N17.0 Acute kidney failure with tubular necrosis; E11.21 Type 2 diabetes mellitus with diabetic nephropathy; E83.41 Hypermagnesemia; K76.0 Fatty (change of) liver, not elsewhere classified; K31.9 Disease of stomach and duodenum, unspecified; E86.0 Dehydration; N39.0 Urinary tract infection, site not specified; E66.01 Morbid (severe) obesity due to excess calories; E78.5 Hyperlipidemia, unspecified; E87.1 Hypo-osmolality and hyponatremia; E87.6 Hypokalemia; I10 Essential (primary) hypertension; Z20.822 Contact with and (suspected) exposure to COVID-19; Z68.42 Body mass index [BMI] 45.0-49.9, adult; Z88.6 Allergy status to analgesic agent; Z88.5 Allergy status to narcotic agent; Z88.8 Allergy status to other drugs, medicaments and biological substances; Z79.899 Other long term (current) drug therapy; Z79.84 Long term (current) use of oral hypoglycemic drugs; Z83.3 Family history of diabetes mellitus
CPT/HCPCS: 36415; 76376; 76770; 80048; 80053; 80061; 80307; 81000; 82009; 82043; 82150; 82570; 82962; 83036; 83605; 83690; 83735; 84100; 84302; 84703; 85025; 85610-TC; 85730-TC; 86140; 87045-TC; 87046; 87081; 87086; 96360; 99285; C9113; J0696; J2405; J2765; J7060; Q9964

== ENCOUNTER 2021-02-28 15:48 | Inpatient (IN) | payer MEDICAID, SELFPAY ==
[~2021-02-28] VITALS: Ht 170.2 cm; Wt 138.3 kg
--- NOTE | 2021-02-28 00:44 | NUR ---
ADMISSION: The patient, JOVANI HAYES, 50 y/o, F admitted by SIRISHA MARTINS DO, was given written information regarding hospital policies, unit procedures and contact persons. Valuables were checked and DOCUMENTED. Addendum: 03/01/21 at 0654 by Preet Hayes RN NOTE INTENDED FOR DIFFERENT TIME
[~2021-02-28 15:48] MED LIST changes: +CIPR500T5 PO; +LACT1TAB14 PO; -LISI2.5T48 PO; -METF-518 PO; -NITR-85 PO; -SIMV10TA2 PO; -TRI48 PO
[2021-02-28 16:00] VITALS: BP_SYST 136
[2021-02-28 17:14] LABS: BASOPHILS % (AUTO) 0.4 % (0.0-2.0); EOSINOPHILS # (AUTO) 0.1 K/uL (0.0-0.4); EOSINOPHILS % (AUTO) 0.5 % (0.0-4.0); HEMATOCRIT 45.8 % (36-48); HEMOGLOBIN 15.1 g/dL (12.0-16.0); LYMPHOCYTES # (AUTO) 1.9 K/uL (1.0-5.5); MEAN CORPUSCULAR HEMOGLOBIN 28 pg (27-31); MEAN CORPUSCULAR HGB CONC 33 % (32-36); MEAN CORPUSCULAR VOLUME 86 fL (79.0-98.0); MONOCYTES # (AUTO) 0.6 K/uL (0.0-1.0); MONOCYTES % (AUTO) 6.4 % (1.7-9.3); NEUTROPHILS # (AUTO) 7.1 K/uL (1.8-7.7); NEUTROPHILS % (AUTO) 72.7 % (40.0-70.0); PLATELET COUNT (AUTO) 357 K/uL (130-430); RED BLOOD CELL COUNT(AUTO) 5.34 MIL/uL (4.2-6.2); WHITE BLOOD COUNT (AUTO) 9.7 K/uL (4.8-10.8)
[2021-02-28 17:58] LABS: CREATININE 1.43 mg/dL (0.55-1.30); POTASSIUM 3.4 mmol/L (3.5-5.1)
[2021-02-28 18:00] LABS: PROTHROMBIN TIME 11.1 SECS (9.5-12.5)
[2021-02-28 18:13] LABS: ALBUMIN 4.5 g/dL (3.4-4.8); TOTAL BILIRUBIN 0.4 mg/dL (0.0-1.0)
--- NOTE | 2021-02-28 19:52 | NUR ---
Patient to ER bed 03 to gown for evaluation. Side rails up. Report given to SAÚL Dejesus
--- NOTE | 2021-02-28 20:16 | NUR ---
PT BIB FAMILY WITH C/O N/V/D AND BURNING ABD PAIN 12/13. SYMPTOMS BEGAN LAST NIGHT, PT UNBLE TO TOLERATE ANYTHING BY MOUTH. ABD TENDER TO TOUCH. PT WAS ADMITTED HERE LAST WEEK FOR SAME ISSUES. PT WAS DX WITH DIVERTICULITIS LAST ADMISSION WELL DEHYDRATION. ALLERGIES - NORCO, ANCEF
[2021-02-28] MEDS ORDERED: NACL 0.9% 1,000 ML IV ONE ×2 (20:45→21:45)
[2021-02-28] MEDS ORDERED: ONDANSETRON HCL 4 MG/2 ML VIAL IVP ONE ×2 (20:45→22:45)
--- NOTE | 2021-02-28 20:52 | NUR ---
DR. TAPIA AT BEDSIDE FOR EVALUATION.
[2021-02-28] MEDS ORDERED: PANTOPRAZOLE SODIUM 40 MG/VIAL (PROTONIX) IVP ONE (21:00)
[2021-02-28] MEDS ORDERED: MAG HYDROX/AL HYDROX/SIMETH 30 ML, DICYCLOMINE HCL 20 MG, LIDOCAINE VISCOUS 2% 15ML (PO... PO ONE ×3 (21:00)
--- NOTE | 2021-02-28 21:54 | NUR ---
PT SATES SHE IS STILL UNABLE TO URINATE OR GIVE A UA AT HIS TIME. IV FLUIDS STILL INFUSING. SHE WANTS TO WAIT UNTIL FLUIDS CONTINUE INFUSING BEFORE TRYING. PT RESTING QUIETLY AT TIS TIME, STILL C/O OF ABD PAIN 11/12. DR TAPIA AWARE
[2021-02-28] MEDS ORDERED: MORPHINE 4 MG INJ. 4 MG/ML VIAL IVP ONE (22:15)
[2021-02-28] MEDS ORDERED: PROCHLORPERAZINE EDISYLATE 10 MG/2 ML VIAL IVP ONE (22:45)
--- NOTE | 2021-02-28 22:53 | NUR ---
covid swab performed at bedside and sent to lab
[2021-02-28 23:14] LABS: CALCIUM 10.1 mg/dL (8.4-11.0); POTASSIUM 3.8 mmol/L (3.5-5.1)
[2021-02-28] MEDS ORDERED: INSULIN REGULAR, HUMAN 100 UNITS/ML, 10 ML VIAL (humuLIN R) SUBCUT PRN (23:15)
[2021-02-28] MEDS: MORPHINE 2 MG/ML INJ. SYRINGE IVP PRN (23:55)
--- NOTE | 2021-02-28 23:56 | NUR ---
PT STILL NOT ABLE TO PROVIDE STOOL OR UA. HAS RECEIVED 2 L OF NS ALREADY. PT TO BE ADMITTED. STILL HAVING PAIN AFTER LAST DOSE OF MED. WILL MEDICATE WITH PAIN MED PER ADMITTING ORDER.
--- NOTE | 2021-03-01 00:21 | NUR ---
STOMACH AND PAIN BETTER CONTROLLED. WAITING TO TRANSFER TO MED/SURG
[2021-03-01 00:44] VITALS: BP_SYST 126
--- NOTE | 2021-03-01 00:44 | NUR ---
ADMISSION: The patient, JOVANI HAYES, 50 y/o, F admitted by SIRISHA MARTINS DO, was given written information regarding hospital policies, unit procedures and contact persons. Valuables were checked and DOCUMENTED.
--- NOTE | 2021-03-01 00:46 | NUR ---
Patient will be admitted to care of DR MARTINS. Admitted to MED/SURG unit. Will go to room 116B. Belongings list completed. Complete and up to date summary report printed. SBAR report to be given at bedside with opportunity for questions.
--- NOTE | 2021-03-01 01:30 | NUR ---
INITIAL NOTE AT INITIAL ASSESSMENT, PATIENT IS RESTING IN BED, STABLE, NO SIGNS OF RESPIRATORY DISTRESS. PATIENT VERBALIZES NO PAIN. PLAN OF CARE FOR THE EVENING IS COMMUNICATED WITH THE PATIENT. PATIENT DEMONSTRATES CORRECT USAGE OF CALL LIGHT AT THIS TIME. BED IS LOCKED, ALARMED, AND AT THE LOWEST LEVEL. FALL SAFETY EDUCATION PROVIDED. FALL, SAFETY, AND RESPIRATORY PRECAUTIONS WILL BE TAKEN THROUGHOUT THE SHIFT.
[2021-03-01] MEDS: NACL 0.9% 1,000 ML IV SCH ×3 (02:41→11:06)
[2021-03-01 06:31] LABS: BASOPHILS % (AUTO) 0.3 % (0.0-2.0); EOSINOPHILS % (AUTO) 0.4 % (0.0-4.0); LYMPHOCYTES # (AUTO) 1.9 K/uL (1.0-5.5); LYMPHOCYTES % (AUTO) 26.9 % (20.5-51.5); MEAN CORPUSCULAR HEMOGLOBIN 28 pg (27-31); MEAN CORPUSCULAR HGB CONC 33 % (32-36); MEAN CORPUSCULAR VOLUME 86 fL (79.0-98.0); MONOCYTES # (AUTO) 0.5 K/uL (0.0-1.0); MONOCYTES % (AUTO) 7.2 % (1.7-9.3); NEUTROPHILS # (AUTO) 4.6 K/uL (1.8-7.7); NEUTROPHILS % (AUTO) 65.2 % (40.0-70.0); PLATELET COUNT (AUTO) 259 K/uL (130-430); RED BLOOD CELL COUNT(AUTO) 4.63 MIL/uL (4.2-6.2); RED CELL DISTRIBUTION WIDTH 15.6 % (9.0-15.0)
--- NOTE | 2021-03-01 06:54 | NUR ---
CLOSING NOTE PATIENT STATED PRN MEDICATION GIVEN TO HER FOR HER PAIN WAS EFFECTIVE. PATIENT SLEPT WELL THROUGHOUT THE SHIFT, NO SHORTNESS OF BREATH NOTED. AT THIS TIME, PATIENT IS RESTING IN BED, STABLE, NO SIGNS OF RESPIRATORY DISTRESS. CALL LIGHT IS WITHIN REACH. BED IS LOCKED, ALARMED, AND AT THE LOWEST LEVEL. FALL, SAFETY, AND RESPIRATORY PRECAUTIONS HAVE BEEN TAKEN THROUGHOUT THE SHIFT. WILL CONTINUE TO MONITOR UNTIL SHIFT REPORT IS GIVEN AT BEDSIDE TO AM NURSE.
--- NOTE | 2021-03-01 07:54 | NUR ---
OPENING NOTES: PATIENT RESTING IN BED. BREATHING EVEN AND NON LABORED TO RA. BED LOCKED, ALARM ON AND IN LOWEST POSITION. FALL, SAFETY AND ASPIRATION MEASURES REINFORCED. CALL LIGHT WITHIN REACH.
[2021-03-01 08:16] VITALS: BP_SYST 110
[2021-03-01 10:17] LABS: ALBUMIN 3.5 g/dL (3.4-4.8); CALCIUM 9.2 mg/dL (8.4-11.0); CREATININE 1.84 mg/dL (0.55-1.30); POTASSIUM 3.6 mmol/L (3.5-5.1); TOTAL BILIRUBIN 0.3 mg/dL (0.0-1.0)
[2021-03-01] MEDS ORDERED: LORazepam 2 MG/ML VIAL IVP PRN (10:45)
[2021-03-01] MEDS ORDERED: ONDANSETRON HCL 4 MG/2 ML VIAL IVP PRN (10:45)
[2021-03-01] MEDS: cefTRIAXone 1 GM IVPB PREMIX 50 ML IV SCH (11:05)
--- NOTE | 2021-03-01 11:12 | NUR ---
RN NOTES/ ACCUCHECK: PATIENT ACCUCHECK (101). NO INSULIN COVERAGE. DR. MARTINS MADE ROUNDS. PER DR. MARTINS PATIENT MAY HAVE CCHO DIET AND MYLANTA 30 ML QID PRN FOR HEARTBURN.
[2021-03-01 12:01] VITALS: BP_SYST 115
[2021-03-01 12:40] LABS: BARBITURATE, URINE NEGATIVE (NEG <=200); BENZODIAZEPINE, URINE NEGATIVE (NEG <=150); CANNABINOID, URINE NEGATIVE (NEG <=50); COCAINE, URINE NEGATIVE (NEG <=150); METHAMPHETAMINES SCREEN,URINE NEGATIVE (NEG <=500); OPIATE, URINE NEGATIVE (NEG <=100); PHENCYCLIDINE SCREEN,URINE NEGATIVE (NEG <=25); UR TRICYCLIC ANTIDEPRESSANTS NEGATIVE (NEG <=300); URINE AMPHETAMINE NEGATIVE (NEG <=500); URINE METHADONE NEGATIVE (NEG <=200); URINE OXYCODONE SCREEN NEGATIVE (NEG <=100); URINE PROPOXYPHENE SCREEN NEGATIVE (NEG <=300)
[2021-03-01] MEDS: metroNIDAZOLE 500 MG TABLET PO SCH ×2 (14:21→21:04)
[2021-03-01] MEDS: MAG-AL HYDROX/SIMETH 30 ML UDC PO PRN (14:22)
--- NOTE | 2021-03-01 14:31 | NUR ---
CONSULT NEPHROLOGY [address] [phone] DR VAUGHAN ON CLL S/W YVAN EXCHANGE
--- NOTE | 2021-03-01 16:53 | NUR ---
RN NOTES/ACCUCHECK: ACCUCHECK DONE (84). DENIES ANY DISCOMFORT. NO S/S OF ACUTE DISTRESS NOTED. PATIENT GIVEN SNACK AND JUICE. AOX4.
--- NOTE | 2021-03-01 16:53 | NUR ---
RN NOTES/ MRSA NARES COLLECTED: MRSA NARES SPECIMEN COLLECTED AND SENT TO LAB.
--- NOTE | 2021-03-01 16:59 | NUR ---
Dietitian Recommendations * [facility] [place] diet * RD provided diabetic and wt loss management MNT JANEE, RD Please refer to Nutrition Assessment for details. Addendum: 03/01/21 at [address] Amended: Links added.
[2021-03-01 17:00] VITALS: BP_SYST 112
--- NOTE | 2021-03-01 19:13 | NUR ---
CLOSING NOTES: PATIENT EATING RESTING IN BED. NO S/S OF ACUTE DISTRESS NOTED. FALL AND SAFETY MEASURES REINFORCED. CALL LIGHT WITHIN REACH.
[2021-03-01 20:28] LABS: FREE T4 (FREE THYROXINE) 1.3 ng/dl (0.8-1.5); THYROID STIMULATING HORMONE 1.66 uIu/mL (0.34-4.82)
[2021-03-01] MEDS: LACTOBACILLUS RHAMNOSUS GG 1 CAP CAPSULE PO SCH (21:05)
--- NOTE | 2021-03-02 00:02 | NUR ---
OFFERED CAFFEINE OR SNACK FOR PATIENT COMPLAINT OF HEADACHE AT THIS TIME. FABIOLA YOU RN
[2021-03-02 00:32] VITALS: BP_SYST 124
[2021-03-02] MEDS: NACL 0.9% 1,000 ML IV SCH ×2 (04:36→20:42)
[2021-03-02] MEDS: metroNIDAZOLE 500 MG TABLET PO SCH ×3 (06:24→20:43)
--- NOTE | 2021-03-02 06:28 | NUR ---
Patient notes headache usually goes away with tylenol. Page to provider preschool special education teacher. Fito Chavez RN
--- NOTE | 2021-03-02 07:25 | NUR ---
Handoff with SAÚL Munguia. Education to patient about stool sample. Fito hCavez RN
[2021-03-02 07:26] LABS: BASOPHILS % (AUTO) 0.5 % (0.0-2.0); EOSINOPHILS # (AUTO) 0.1 K/uL (0.0-0.4); EOSINOPHILS % (AUTO) 1.7 % (0.0-4.0); HEMOGLOBIN 12.9 g/dL (12.0-16.0); LYMPHOCYTES # (AUTO) 1.7 K/uL (1.0-5.5); LYMPHOCYTES % (AUTO) 31.5 % (20.5-51.5); MEAN CORPUSCULAR HEMOGLOBIN 28 pg (27-31); MEAN CORPUSCULAR HGB CONC 32 % (32-36); MEAN CORPUSCULAR VOLUME 87 fL (79.0-98.0); MONOCYTES # (AUTO) 0.3 K/uL (0.0-1.0); MONOCYTES % (AUTO) 5.4 % (1.7-9.3); NEUTROPHILS # (AUTO) 3.3 K/uL (1.8-7.7); NEUTROPHILS % (AUTO) 60.9 % (40.0-70.0); PLATELET COUNT (AUTO) 229 K/uL (130-430); RED BLOOD CELL COUNT(AUTO) 4.62 MIL/uL (4.2-6.2); RED CELL DISTRIBUTION WIDTH 15.8 % (9.0-15.0); WHITE BLOOD COUNT (AUTO) 5.5 K/uL (4.8-10.8)
[2021-03-02 08:10] VITALS: BP_SYST 126
--- NOTE | 2021-03-02 08:15 | NUR ---
OPENING NOTE ALERT AND ORIENTED. NO SHORTNESS OF BREATH ON ROOM AIR. PATIENT IS COMPLAINING OF A 9/10 HEADACHE SINCE LAST NIGHT. WILL MEDICATE. DENIES ANY NAUSEA OR VOMITING. IV INFUSING WELL ON RIGHT HAND. PLAN OF CARE EXPLAINED TO PATIENT, VERBALIZED UNDERSTANDING. SAFETY CHECKS DONE. CALL LIGHT WITHIN REACH. WILL MONITOR.
[2021-03-02] MEDS: LACTOBACILLUS RHAMNOSUS GG 1 CAP CAPSULE PO SCH ×2 (08:30→20:43)
[2021-03-02] MEDS: ENOXAPARIN SODIUM 40 MG/0.4 ML SYRINGE SUBCUT SCH (08:31)
[2021-03-02] MEDS: MORPHINE 2 MG/ML INJ. SYRINGE IVP PRN (08:32)
--- NOTE | 2021-03-02 09:00 | NUR ---
STOOL COLLECTED STOOL SAMPLE COLLECTED AND BROUGHT TO LAB.
[2021-03-02] MEDS: cefTRIAXone 1 GM IVPB PREMIX 50 ML IV SCH (11:12)
--- NOTE | 2021-03-02 11:23 | NUR ---
MD ROUNDS SEEN AND EXAMINED BY DR. MARTINS AT BEDSIDE. INFORMED MD ABOUT THE WATERY STOOL. MD DECIDED TO KEEP PATIENT FOR ANOTHER DAY TO WAIT FOR STOOL TEST RESULTS. ALSO ORDERED NORCO-10 FOR PATIENT'S HEADACHE. PATIENT AGREED WITH PLAN OF CARE. SAFETY CHECKS DONE. WILL MONITOR.
[2021-03-02] MEDS ORDERED: HYDROcodone/ACETAMIN 10-325 MG TAB PO PRN (11:30)
[2021-03-02 11:51] LABS: ALBUMIN 3.2 g/dL (3.4-4.8); CALCIUM 8.5 mg/dL (8.4-11.0); CREATININE 1.3 mg/dL (0.55-1.30); PHOSPHORUS 3.9 mg/dL (2.7-4.5); POTASSIUM 3.5 mmol/L (3.5-5.1); TOTAL BILIRUBIN 0.3 mg/dL (0.0-1.0)
--- NOTE | 2021-03-02 13:30 | NUR ---
DIZZINESS PATIENT REPORTED THAT SHE SUDDENLY FELT DIZZY AND SWEATY. VITAL SIGNS BP 133/76, ND-82, TEMP 96.6, O2 SAT 96% ON ROOM AIR AND RESPIRATIONS 16. INSTRUCTED PATIENT TO STAY IN BED AND ASK FOR ASSISTANCE IF SHE WANTS TO GO TO THE RESTROOM. FALL PRECAUTIONS IN PLACE. CALL LIGHT WITHIN REACH. PAGED DR. MARTINS.
--- NOTE | 2021-03-02 14:15 | NUR ---
PATIENT REFUSED TO TAKE PO FLAGYL FOR NOW. SHE SAID SHE IS NAUSEATED. OFFERED ZOFRAN BUT SHE SAID ZOFRAN MADE HER THROW UP MORE THE LAST TIME IT WAS GIVEN TO HER.
[2021-03-02] MEDS ORDERED: MECLIZINE HCL 25 MG TABLET (ANITVERT) PO ONE (15:00)
[2021-03-02 16:00] VITALS: BP_SYST 140
--- NOTE | 2021-03-02 18:42 | NUR ---
CLOSING NOTES PATIENT FEELS A LITTLE BETTER. REFUSED DINNER. IV FLUID STILL INFUSING WELL. ALL NEEDS MET THROUGHOUT SHIFT. SAFETY CHECKS DONE. CALL LIGHT WITHIN REACH. WILL ENDORSE TO NIGHT NURSE.
--- NOTE | 2021-03-02 19:30 | NUR ---
initial notes: pt is awake, alert, oriented x 4. sitting on edge of bed. no pain, not distress. vital sign stable. room air. ambulatory with steady gait. iv infusing to right hand- infusing well. explain plan of care tonight, pt verbalized understanding. needs attended, call light in reach, safety precaution in place. low bed position, side rails up. will continue to monitor.
[2021-03-02 19:33] VITALS: BP_SYST 143
[2021-03-02] MEDS: ACETAMINOPHEN 325 MG TABLET PO PRN (23:16)
[2021-03-03] VITALS: BP_SYST 137
--- NOTE | 2021-03-03 | NUR ---
HIGH ALERT NOTE: Called Dr. story back [phone] identified within the medical roster to verify physician authenticity.
--- NOTE | 2021-03-03 00:02 | NUR ---
pt is resting, no p[ain, not distres, stable vital sign.
[2021-03-03] MEDS: metroNIDAZOLE 500 MG TABLET PO SCH ×2 (06:23→14:19)
--- NOTE | 2021-03-03 07:00 | NUR ---
closing: pt is awake alert. ambulates to bathroom and steady gait. no pain. stable. needs attended. call light with the pt. will continue to monitor until sbar reporting given to am rn. pt request for anti diarrhea drug.
[2021-03-03] MEDS ORDERED: LOPERAMIDE HCL 2 MG CAPSULE PO PRN (07:15)
[2021-03-03 08:00] VITALS: BP_SYST 146
[2021-03-03] MEDS: ENOXAPARIN SODIUM 40 MG/0.4 ML SYRINGE SUBCUT SCH (08:27)
[2021-03-03] MEDS: LOPERAMIDE HCL 2 MG CAPSULE PO PRN ×2 (08:27→16:24)
[2021-03-03] MEDS: LACTOBACILLUS RHAMNOSUS GG 1 CAP CAPSULE PO SCH (08:27)
[2021-03-03 08:45] LABS: BASOPHILS % (AUTO) 0.6 % (0.0-2.0); EOSINOPHILS # (AUTO) 0.1 K/uL (0.0-0.4); EOSINOPHILS % (AUTO) 2.2 % (0.0-4.0); HEMATOCRIT 38.7 % (36-48); HEMOGLOBIN 12.5 g/dL (12.0-16.0); LYMPHOCYTES # (AUTO) 1.3 K/uL (1.0-5.5); LYMPHOCYTES % (AUTO) 31.1 % (20.5-51.5); MEAN CORPUSCULAR HEMOGLOBIN 28 pg (27-31); MEAN CORPUSCULAR HGB CONC 32 % (32-36); MEAN CORPUSCULAR VOLUME 87 fL (79.0-98.0); MONOCYTES # (AUTO) 0.3 K/uL (0.0-1.0); MONOCYTES % (AUTO) 6.4 % (1.7-9.3); NEUTROPHILS # (AUTO) 2.5 K/uL (1.8-7.7); NEUTROPHILS % (AUTO) 59.7 % (40.0-70.0); PLATELET COUNT (AUTO) 233 K/uL (130-430); RED BLOOD CELL COUNT(AUTO) 4.45 MIL/uL (4.2-6.2); RED CELL DISTRIBUTION WIDTH 16.3 % (9.0-15.0); WHITE BLOOD COUNT (AUTO) 4.2 K/uL (4.8-10.8)
[2021-03-03 09:05] LABS: ALBUMIN 3.4 g/dL (3.4-4.8); CALCIUM 9.2 mg/dL (8.4-11.0); CREATININE 1.24 mg/dL (0.55-1.30); POTASSIUM 3.5 mmol/L (3.5-5.1); TOTAL BILIRUBIN 0.3 mg/dL (0.0-1.0)
[2021-03-03] MEDS: cefTRIAXone 1 GM IVPB PREMIX 50 ML IV SCH (11:00)
[2021-03-03] MEDS ORDERED: METR500T PO (11:30)
[2021-03-03 13:44] VITALS: BP_SYST 146
--- NOTE | 2021-03-03 14:00 | NUR ---
NURSING NOTES: 0715AM: PATIENT IS RESTING IN BED QUIETLY. NO ADDITIONAL DISTRESS NOTED. BED IN LOW AND LOCK POSITION. CALL LIGHT WITHIN REACH. STABLE CONDITION AT THIS TIME. WILL CONT TO MONITOR. 0800AM: EXPLAINED PLAN OF CARE AND PATIENT VERBALIZED UNDERSTANDING. WILL CONT TO MONITOR. 0827AM: PATIENT C/O OF LOOSE STOOLS X5 TODAY. DENIES BLOOD OR MUCUS IN STOOLS. IMMODIUM GIVEN PER PATIENT REQUESTED. WILL CONT TO MONITOR. 0900AM: PATIENT IS SITTING AT THE SIDE OF THE BED TRYING TO EAT HER BREAKFAST. NO ADDITIONAL DISTRESS NOTED. 1000AM: PATIENT IN THE RESTROOM DOING HER MORNING HYGIENE. WILL CONT TO MONITOR. 1041AM: ZOFRAN IVP GIVEN DUE TO PATIENT C/O MILD NAUSEA AND VOMITING. WILL CONT TO MONITOR. 1200PM: PATIENT IS RESTING IN BED. NO C/O N/V/D AT THIS TIME. PATIENT DOES NOT WANT TO EAT AND REQUESTED FOR BANANA AND OATMEAL/CREAM OF WHEAT. PATIENT C/O HEART BURNED AND MYLANTA GIVEN PER PATIENT REQUEST. WILL CONT TO MONITOR. 1215PM: PER [facility], THEY DO NOT SERVE OATMEAL/CREAM OF WHEAT AT THIS TIME. THEY WILL DELIVER THE BANANA. MADE PATIENT AWARE. 1400: PATIENT IS RESTING IN BED. NO ADDITIONAL DISTRESS NOTED. WILL CONT TO MONITOR.
[2021-03-03] MEDS: MAG-AL HYDROX/SIMETH 30 ML UDC PO PRN (14:15)
[2021-03-03] MEDS: ACETAMINOPHEN 325 MG TABLET PO PRN (16:36)
[2021-03-03] MEDS ORDERED: ONDA4TAB5 PO (17:49)
--- NOTE | 2021-03-03 18:15 | NUR ---
NURSING NOTES: 1500:EXPLAINED AND GAVE DC INSTRUCTION TO PATIENT AND SHE VERBALIZED UNDERSTANDING. AWAITING FOR TO PICK HER UP AROUND 4PM TODAY. 1600: PATIENT IS RESTING IN BED TALKING IN THE PHONE WITH HER FRIEND. NO ADDITIONAL DISTRESS NOTED. WILL CONT TO MONITOR. 1624:GAVE IMODIUM DUE TO PATIENT C/O LOOSE STOOLS X5 AGAIN. NO BLOOD OR MUCUS IN STOOLS NOTED. 1636: GAVE TYLENOL DUE TO C/O HUGGINS 6/10. WILL CONT TO MONITOR. 1730: AT THE BEDSIDE AND STATED THAT THE PATIENT DOES NOT WANT TO LEAVE. PER PATIENT, SHE DOES NOT FEEL BETTER AND STILL HAVING DIARRHEA. CALLED DR. MARTINS, BUT REGISTERED SALES ASSISTANT TODAY IS DR MOTT. PER DR MOTT, PATIENT IS MEDICALLY DC TODAY AND WILL NOT HOLD THE DC. MADE AWARE TO MD THAT IMODIUM WAS GIVEN TWICE TODAY AND TODAY OF 10 LOOSE STOOL THROUGHOUT THE SHIFT. PER MD, PATIENT CAN GO HOME AND TAKE THE PRESCRIBED ABT MEDICATION AND NEED TO HYDRATE, HYDRATE, AND HYDRATE. SPOKE WITH PATIENT AND , MADE AWARE OF MD INSTRUCTIONS. 1740: PER PATIENT, SHE DOESNT WANT TO LEAVE AND RATHER STAY. SPOKE TO DR. MOTT AGAIN AND MD STATED THAT PATIENT IS MEDICALLY CLEAR TO BE DC HOME AND WILL NOT HOLD DC ORDER. PATIENT CAN STAY BUT INSURANCE WILL NOT COVER IT. ALSO, IF PATIENT STAYS, PLAN OF CARE WILL BE THE SAME. NO CHANGE WILL BE MADE. MADE PATIENT AWARE AND STATED SHE WILL GO HOME BUT REQUESTED FOR ZOFRAN WHEN DC HOME. 1750: SPOKE WITH DR MOTT AGAIN AND STATED THAT HE WILL WRITE THE ORDER AND SEND IT TO THE PATIENT'S PHARMACY ON FILE. 1800: PER PATIENT, IV TO THE HAS BEEN DISLODGED. IV CATH INTACT AND PATENT. COVER SITE WITH GAUZE AND SECURE WITH TAPE. 1815: WHEELED OUT PATIENT IN A STABLE CONDITION ACCOMPANIED BY PRIMARY NURSE AND . ALL PERSONAL BELONGINGS GIVEN TO PATIENT AND DENIES MISSING ITEMS.
== END 2021-03-03 18:15 | disposition home or self-care (01) | DRG 244 ==
LOC: SED 15:48 → SMU 23:01
DX: K57.32 Diverticulitis of large intestine without perforation or abscess without bleeding (principal); N17.0 Acute kidney failure with tubular necrosis; E44.1 Mild protein-calorie malnutrition; E87.0 Hyperosmolality and hypernatremia; E87.6 Hypokalemia; Z20.822 Contact with and (suspected) exposure to COVID-19; M47.897 Other spondylosis, lumbosacral region; E11.65 Type 2 diabetes mellitus with hyperglycemia; E66.9 Obesity, unspecified; Z98.891 History of uterine scar from previous surgery; Z98.51 Tubal ligation status; Z79.2 Long term (current) use of antibiotics; Z88.8 Allergy status to other drugs, medicaments and biological substances; Z88.1 Allergy status to other antibiotic agents; Z79.84 Long term (current) use of oral hypoglycemic drugs; Z79.899 Other long term (current) drug therapy; Z56.0 Unemployment, unspecified; Z68.42 Body mass index [BMI] 45.0-49.9, adult; Z71.3 Dietary counseling and surveillance
CPT/HCPCS: 36415; 71045; 76376; 80048; 80053; 80061; 80307; 82272; 82962; 83036; 83690; 83735; 83880; 84100; 84439; 84443; 85025; 85610-TC; 85730-TC; 87045-TC; 87046; 87081; 87177; 89055; 96361; 96374; 96375; 99285; C9113; J0696; J0780; J1650; J1815; J2001; J2270; J2405; J8597

== ENCOUNTER 2021-07-30 14:57 | Emergency (ER) | payer MEDICAID ==
[~2021-07-30] VITALS: Ht 170.2 cm; Wt 137.0 kg
[~2021-07-30 14:57] MED LIST changes: -CIPR500T5 PO; -LACT1TAB14 PO; -LOM2.5 PO; +METR500T PO; +SACC250C3 PO
[2021-07-30 15:17] VITALS: BP_SYST 151
--- NOTE | 2021-07-30 16:34 | NUR ---
Patient to ER bed 02 to gown for evaluation. Side rails up.
--- NOTE | 2021-07-30 17:00 | NUR ---
PATIENT AAOX4 FROM HOME C/O ABDOMINAL PAIN THAT STARTED TODAY. HAS BEEN DIAGNOSED WITH DIVERTICULITIS. C/O N/V. DENIES ANY CHEST PAIN OR N/V. DENIES ANY BLEEDING AT THIS TIME. RATING PAIN TO MID ABDOMEN.
--- NOTE | 2021-07-30 18:43 | NUR ---
ER Dr. GIORDANO at bedside examining patient.
[2021-07-30] MEDS ORDERED: PANTOPRAZOLE SODIUM 40 MG/VIAL (PROTONIX) IVP ONE (18:45)
[2021-07-30] MEDS ORDERED: NACL 0.9% 1,000 ML IV ONE (18:45)
[2021-07-30] MEDS ORDERED: ONDANSETRON HCL 4 MG/2 ML VIAL IVP ONE (18:45)
[2021-07-30 19:09] LABS: BASOPHILS % (AUTO) 0.1 % (0.0-2.0); EOSINOPHILS % (AUTO) 0.1 % (0.0-4.0); HEMATOCRIT 46.6 % (36-48); HEMOGLOBIN 15.5 g/dL (12.0-16.0); LYMPHOCYTES # (AUTO) 1.2 K/uL (1.0-5.5); LYMPHOCYTES % (AUTO) 8.7 % (20.5-51.5); MEAN CORPUSCULAR HEMOGLOBIN 28 pg (27-31); MEAN CORPUSCULAR HGB CONC 33 % (32-36); MEAN CORPUSCULAR VOLUME 83 fL (79.0-98.0); MONOCYTES # (AUTO) 0.5 K/uL (0.0-1.0); MONOCYTES % (AUTO) 3.3 % (1.7-9.3); NEUTROPHILS # (AUTO) 12.3 K/uL (1.8-7.7); NEUTROPHILS % (AUTO) 87.8 % (40.0-70.0); PLATELET COUNT (AUTO) 367 K/uL (130-430); RED BLOOD CELL COUNT(AUTO) 5.59 MIL/uL (4.2-6.2)
[2021-07-30 19:17] LABS: CALCIUM 10.7 mg/dL (8.4-11.0); CREATININE 1.89 mg/dL (0.55-1.30); POTASSIUM 3.6 mmol/L (3.5-5.1)
[2021-07-30 19:23] LABS: ALBUMIN 4.6 g/dL (3.4-4.8); TOTAL BILIRUBIN 0.4 mg/dL (0.0-1.0)
--- NOTE | 2021-07-30 19:23 | NUR ---
REPORT GIVEN TO SAÚL BAXTER TO ASSUME CARE.
[2021-07-30] MEDS ORDERED: MAG HYDROX/AL HYDROX/SIMETH 30 ML, DICYCLOMINE HCL 20 MG, LIDOCAINE VISCOUS 2% 15ML (PO... PO ONE ×3 (21:15)
--- NOTE | 2021-07-30 21:30 | NUR ---
Pt aaox3, denies sob/cp, reports she feels better after GI cocktail PO, resp easy and non labored, afebrile. ct scan done. awaiting for disposition
[2021-07-30] MEDS ORDERED: PRO40 PO (22:04)
--- NOTE | 2021-07-30 22:30 | NUR ---
Prashanth by Dr. Fontenot, discharged. IV heplock discontinued. d/c instructions given, verbalized understanding. advised to f/u w/ PMD. Pt in no acute distress, left accompanied by family member
[2021-07-30 22:33] VITALS: BP_SYST 141
== END 2021-07-30 23:13 | disposition home or self-care (01) ==
LOC: SED 14:57
DX: R10.10 Upper abdominal pain, unspecified (principal); K29.70 Gastritis, unspecified, without bleeding; I10 Essential (primary) hypertension
CPT/HCPCS: 36415; 74176; 76376; 80053; 83690; 85025; 96361; 96374; 96375; 99285; C9113; J2001; J2405; 96360

== ENCOUNTER 2021-09-10 08:55 | Emergency (ER) | payer MEDICAID ==
[~2021-09-10] VITALS: Ht 170.2 cm; Wt 137.0 kg
[~2021-09-10 08:55] MED LIST changes: +PRO40 PO
[2021-09-10 08:59] VITALS: BP_SYST 145
--- NOTE | 2021-09-10 09:02 | NUR ---
Patient to ER bed 7 to gown for evaluation. Side rails up. Report given to SAÚL DAVIS.
--- NOTE | 2021-09-10 09:15 | NUR ---
DR CORDERO EVALUATING PATIENT AT BEDSIDE
[2021-09-10] MEDS ORDERED: [UNRECOGNIZED DRUG - CODE] TP (09:16)
--- NOTE | 2021-09-10 09:20 | NUR ---
51YO F C/O LEFT EYE SWWELLING X 1 DAY. ALSO WITH YELLOWISH DISCHARGE. DENIES PAIN, BLURRING OF VISION. APPLIED WARM COMPRESS. IN ED, VSS. WITH ERYTHEMATOUS LEFT LID. ERMD MADE AWARE OF PT STATUS.
[2021-09-10 09:28] VITALS: BP_SYST 145
--- NOTE | 2021-09-10 09:28 | NUR ---
Patient given written and verbal discharge instructions and verbalizes understanding. ER MD discussed with patient the results and treatment provided. Patient in stable condition. ID arm band removed. Rx of erythromycin gel given. Patient educated on pain management and to follow up with PMD. Pain Scale 0. Opportunity for questions provided and answered. Medication side effect fact sheet provided.
== END 2021-09-10 09:28 | disposition home or self-care (01) ==
LOC: SED 08:55
DX: H01.004 Unspecified blepharitis left upper eyelid (principal)
CPT/HCPCS: 99283

== ENCOUNTER 2022-01-02 17:27 | Emergency (ER) | payer MEDICAID ==
[~2022-01-02] VITALS: Ht 170.2 cm; Wt 132.9 kg
[~2022-01-02 17:27] MED LIST changes: +[UNRECOGNIZED DRUG - CODE] TP
[2022-01-02 18:10] VITALS: BP_SYST 131
[2022-01-02] MEDS ORDERED: FLOEARD LEFT EAR (21:44)
[2022-01-02 22:02] VITALS: BP_SYST 129
== END 2022-01-02 22:02 | disposition home or self-care (01) ==
LOC: SED 17:27
DX: H60.92 Unspecified otitis externa, left ear (principal); Z88.5 Allergy status to narcotic agent; Z88.6 Allergy status to analgesic agent; Z79.899 Other long term (current) drug therapy
CPT/HCPCS: 99283

== ENCOUNTER 2022-05-16 22:18 | Emergency (ER) | payer MEDICAID ==
[~2022-05-16] VITALS: Ht 170.2 cm; Wt 142.9 kg
[~2022-05-16 22:18] MED LIST changes: +FLOEARD LEFT EAR
[2022-05-16 22:56] VITALS: BP_SYST 136
--- NOTE | 2022-05-17 00:01 | NUR ---
Pt placed in Bed 8. Yours truly assumed care of patient.
[2022-05-17] MEDS ORDERED: KETOROLAC TROMETHAMINE 30 MG VIAL IM ONE (00:15)
--- NOTE | 2022-05-17 00:38 | NUR ---
Pt back from CT at this time.
[2022-05-17 00:42] LABS: BILIRUBIN,URINE NEGATIVE (NEGATIVE); BLOOD, URINE NEGATIVE (NEGATIVE); CLARITY/URINE CLEAR (CLEAR); COLOR,URINE YELLOW (YELLOW); GLUCOSE,URINE NEGATIVE (NEGATIVE); KETONES,URINE NEGATIVE (NEGATIVE); LEUKOCYTE ESTERASE ,URINE NEGATIVE (NEGATIVE); NITRITE, URINE NEGATIVE (NEGATIVE); PROTEIN URINE NEGATIVE (NEGATIVE); UROBILINOGEN,URINE 0.2 (0.2-1.0)
[2022-05-17] MEDS ORDERED: AMOX-404 PO (02:43)
[2022-05-17] MEDS ORDERED: ACET-2634 PO (02:53)
[2022-05-17] MEDS ORDERED: METH-634 PO (02:53)
--- NOTE | 2022-05-17 03:16 | NUR ---
Patient given written and verbal discharge instructions and verbalizes understanding. ER MD discussed with patient the results and treatment provided. Patient in stable condition. ID arm band removed. Rx of given. Patient educated on pain management and to follow up with PMD. Pain Scale . Opportunity for questions provided and answered. Medication side effect fact sheet provided.
[2022-05-17 03:20] VITALS: BP_SYST 110
== END 2022-05-17 03:20 | disposition home or self-care (01) ==
LOC: SED 22:18
DX: S76.212A Strain of adductor muscle, fascia and tendon of left thigh, initial encounter (principal); K57.92 Diverticulitis of intestine, part unspecified, without perforation or abscess without bleeding; Z88.5 Allergy status to narcotic agent; Z88.6 Allergy status to analgesic agent; Z79.899 Other long term (current) drug therapy; X50.1XXA Overexertion from prolonged static or awkward postures, initial encounter; Y93.89 Activity, other specified; Y92.89 Other specified places as the place of occurrence of the external cause; Y99.8 Other external cause status
CPT/HCPCS: 99285; 81025; 81003; 72192; 76376; 96372; J1885